=== PATIENT | female | born 1940 | race Caucasian/White ===

== ENCOUNTER → 2016-06-19 | Outpatient (CLI) | payer OTHER | LOC: MMPC 09:00 | PROVIDERS: ATTEND Family Medicine | DX: I10 Essential (primary) hypertension (principal); E03.9 Hypothyroidism, unspecified; I71.2 Thoracic aortic aneurysm, without rupture | CPT/HCPCS: 99214; G0463 ==

== ENCOUNTER → 2016-07-03 | Outpatient (CLI) | payer OTHER ==
[2016-07-03 09:13] LABS: CREATININE 0.9 mg/dL (0.50-1.20)
--- NOTE | 2016-07-03 15:01 | DI ---
CT CTA CHEST NONCORONARY W/WO,07/03/2016 8:58 AM: Clinical History: Abdominal aortic aneurysm. Previous Exam: None at this facility. Findings: Multiple helically acquired CT images are obtained through the chest following the intravenous admini stration of 75 cc of Isovue 300, and demonstrate a 4.6 cm ascending aortic aneurysm. The aortic arch is within normal limits. The thoracic aorta is also normal with a slightly tortuous c ourse. There is some subsegmental atelectasis in the lung bases. Mild degenerative changes are seen of the thoracic spine with some anterior wedging of the seventh th oracic vertebral body. Mild facet arthropathy is seen. There is a normal three-vessel arch. The thyroid is unremarkable as well. The upper abdomen is unremarkable. The pulmonary arteries are normal without filling defect or trunca tion to suggest a pulmonary embolism. Impression: 1. 4.6 cm aneurysm of the ascending thoracic aorta near the aortic root.
== END ==
LOC: LAB 08:40 → CT 08:40
PROVIDERS: ATTEND Internal Medicine Cardiovascular Disease
DX: I71.2 Thoracic aortic aneurysm, without rupture (principal)
CPT/HCPCS: 36415; 71275; 82565; 84520

== ENCOUNTER → 2016-07-08 | Outpatient (CLI) | payer OTHER ==
--- NOTE | 2016-07-09 15:53 | DI ---
CT ANGIOGRAM OF THE AORTA WITHOUT RUNOFF, 07/08/2016 7:51 AM : Clinical History: Abdominal aortic aneurysm. Previous Exam: None at this facility. Pre-and postcontrast scans are performed from the level of the lung bases to the iliac arteries. Post contrast scans utilized IV administration of 65 mL of Isovue 300. Proprietary automated bolus trackin g software was used to verify the timing of the injection. 3D MIPS and volume rendering post processi ng of the data was performed. The distal descending thoracic aorta has a soft tissue density along the left lateral margin and this may represent a mural thrombus within a dilated thoracic aorta although the margins of this low dens ity area are irregular. The abdominal aorta shows no significant plaque disease. The origins of the c eliac axis and the SMA light 90 degrees to the left lateral aspect of the aorta but are normal. The p williams hepatic and splenic arteries in the SMA and RICK also are normal. The common, external, and inte rnal iliac arteries show no significant plaque disease. The runoff from the common femoral arteries t o the popliteal arteries show no significant occlusive disease. There are normal single renal arterie s bilaterally. READIN. There is no aneurysm of the abdominal aorta or of the common iliac arteries and their branches as well as the common femoral arteries. 2. The celiac axis, SMA, RICK, and both renal arteries are normal. 3. There is an irregular low-density area along the left lateral margin of the distal descending aor ta. This may represent a mural thrombus although the margins along the surface of the aorta are quite irregular. Comment: This patient had a CT angiogram of the chest from 07/03/2016. The descending aorta has a norm al caliber throughout and the wall of the aorta is well-defined. No plaque disease is present and the re is no evidence to suggest there is a mural thrombus in a dilated aorta. Instead, there is evidence of old inflammatory disease in what probably is the medial basal segment of the left lower lobe and this is contiguous with the aorta. This soft tissue density is consistent with postinflammatory scarr ing that is adherent to the left lateral wall of the descending aorta.
== END ==
LOC: CT 07:44
PROVIDERS: ATTEND Internal Medicine Cardiovascular Disease
DX: I71.2 Thoracic aortic aneurysm, without rupture (principal)
CPT/HCPCS: 74175